=== PATIENT | female | born 1950 | race African-American/Black ===

== ENCOUNTER → 2017-11-12 | Outpatient (CLI) | payer MEDICARE, OTHER | LOC: M.RAD 09:25 | DX: Z12.31 Encounter for screening mammogram for malignant neoplasm of breast (principal) ==

== ENCOUNTER → 2017-11-16 | Outpatient (CLI) | payer MEDICARE, OTHER | LOC: M.RAD 08:51 | DX: M19.011 Primary osteoarthritis, right shoulder (principal) ==

== ENCOUNTER → 2018-06-10 | Outpatient (CLI) | payer MEDICARE, OTHER | LOC: M.ULTRA 12:19 | DX: M25.561 Pain in right knee (principal) ==

== ENCOUNTER → 2018-11-14 | Outpatient (CLI) | payer MEDICARE, OTHER | LOC: M.RAD 10:26 | DX: Z12.31 Encounter for screening mammogram for malignant neoplasm of breast (principal) ==

== ENCOUNTER → 2019-09-01 | Outpatient (CLI) | payer MEDICARE, OTHER | LOC: M.ULTRA 13:38 | DX: R19.09 Other intra-abdominal and pelvic swelling, mass and lump (principal); R10.31 Right lower quadrant pain ==

== ENCOUNTER 2019-10-01 05:12 | Emergency (ER) | payer MEDICARE, OTHER ==
[~2019-10-01] VITALS: Ht 172.7 cm; Wt 86.6 kg
[2019-10-01] MEDS ORDERED: INDOMETHACIN 2525 MG PO (05:51)
[2019-10-01] MEDS ORDERED: PREDNISONE50 MG PO (05:51)
[2019-10-01] MEDS ORDERED: HYDROCODON-ACE1 EAC8 PO (06:20)
[2019-10-01 06:28] VITALS: BP 148/67
== END 2019-10-01 06:28 | disposition home or self-care (01) ==
LOC: M.ERS 05:12
DX: M54.5 Low back pain (principal); M79.645 Pain in left finger(s); M79.644 Pain in right finger(s)

== ENCOUNTER → 2019-10-24 | Outpatient (CLI) | payer MEDICARE, OTHER ==
[~2019-10-24] MED LIST: ADVIL200 M1 PO; AMITRIPTYLINE H10 M3 PO; HYDROCODON-ACE1 EAC8 PO; INDOMETHACIN 2525 MG PO; LOW DOSE ASPIRI81 M1 PO; MOBIC15 MG PO; PREDNISONE50 MG PO; RED YEAST RICE600 MG PO; VITAMIN D32000 UNIT PO
--- NOTE | 2019-11-03 08:24 | PAINCON ---
[address] [address] PAIN MANAGEMENT CONSULTATION Name: MICHAEL MAJOR Room: [facility] KENDRICK Edmondson.#: [id number] Admission: 10/24/19 Attend Phys: Phuc Olivares MD Discharge: Date of : 52 Report #: [id number] THIS REPORT FOR: //name// cc: Katharina Donohue Linda J. DO THIS REPORT FOR: //name// CC: Katharina Sanders The patient was seen on 10/24/[address] Dheeraj Olivares. CHIEF COMPLAINT: Severe back pain with numbness into the right leg and buttocks. HISTORY: The patient is a 69-year-old female who has been referred to the pain clinic for evaluation of back and leg pain. The patient has noted pain and discomfort since 07/2019. She describes her pain as a severe discomfort in the lower portion of her back. She is experiencing numbness in her right leg. She has pain in the buttocks. She has pain in her hip, which feels extremely sore. She is experiencing stiffness as well. Stiffness limits her ability to engage in activities of daily living. She feels that she is having some trouble walking because of this. She has tried hydrocodone in the past. She has found prednisone as well as Indomethacin helpful. She also uses Advil. She describes her discomfort as continuous, steady, constant, burning, aching, pulling, gnawing and tender to touch. She rates her pain as a 10/10. She had an x-ray in the past, which was negative. She has had an ultrasound, which has been negative. She denies any new bowel or bladder problems. ALLERGIES: SULFA. CURRENT MEDICATIONS: Aspirin 81 mg, vitamin D3 2000 units, hydrocodone 7.5/325, ibuprofen 200 mg t.i.d. p.r.n., Indomethacin 25 mg t.i.d., red yeast rice extract 600 mg. PAST MEDICAL HISTORY: Generally good health. PAST SURGICAL HISTORY: None. SOCIAL HISTORY: She is retired. REVIEW OF SYSTEMS: Questionnaire generally good health, fatigue and weakness, glaucoma/cataracts, awakens at night to urinate, joint pain, joint stiffness, weakness of muscles and joints, muscle cramping, back pain, difficulty walking, numbness [place] [address] PAIN MANAGEMENT CONSULTATION Name: MICHAEL MAJOR Room: [facility]#: [id number] Admission: 10/24/19 Attend Phys: Phuc Olivares MD Discharge: Date of : 51 Report #: [id number] PAIN CLINIC ASSESSMENT/PQRS: 1. The patient is not being treated for rheumatoid arthritis or osteoarthritis. 2. Height 5 feet 8 inches, weight 196 pounds, BMI is 29.8. 3. Vital signs: Blood pressure 156/91, heart rate 120, second blood pressure 159/85, respiratory rate 16, saturation 97%, temperature 99.2. 4. Pain score, right hip, 10/10. 5. Fall history: The patient has not fallen in the last 3 months. 6. Blood thinner. The patient is not on a blood thinning medication. 7. Hypertension. The patient is not being treated for hypertension. 8. Opioids greater than 6 weeks. The patient is not on a chronic opioid regimen, receives medication from her primary. 9. Risk assessment tool, low for opioid use. 10. Functional assessment tool 60/70. 11. Recreational drug use. The patient denies use of tobacco. 12. Alcohol. The patient denies frequent use of alcoholic beverages. PHYSICAL EXAMINATION: GENERAL: The patient is a well-developed, well-nourished black female, who appears her stated age. She is alert and oriented x 3. Her affect is appropriate. Speech is fluent. HEENT: Normocephalic, atraumatic. Extraocular eye muscles intact. Sclerae are nonicteric. Mucous membranes are moist. NECK: Without adenopathy or JVD. HEART: Regular rate. ABDOMEN: Nontender. CHEST: Clear to auscultation. EXTREMITIES: Upper extremity muscle strength judged to be 5/5 for the major muscle groups in the upper extremity. Deep tendon reflexes are +1 for the biceps bilaterally. Lower extremity muscle strength judged to be 5/5 for the major muscle groups in the lower extremity. The patient has increased pain in the low back area. Forward bending causes increased pain with pain radiating down in the L5-S1 dermatomal distribution. Deep tendon reflexes are trace at the knees, bilateral. Michael sign is negative. IMPRESSION: Lumbar radiculopathy, L5-S1 dermatomal distribution. RECOMMENDATIONS: We discussed treatment options with the patient. Risks and benefits of an epidural steroid injection were discussed. A model was used to indicate the area of probable pathology. Possible complications of an injection were reviewed. They include but are not limited to infection, worsening of pain, nerve damage, spinal headache, muscle soreness. The patient elects to proceed. PROCEDURE NOTE: The patient was taken to the procedure area. She was then assisted in getting on examination table. Her back was sterilely prepped with a Betadine solution. At the L5-S1 area, 0.25% bupivacaine [place] [address] PAIN MANAGEMENT CONSULTATION Name: MICHAEL MAJOR Room: [facility] BARB JonelEda#: [id number] Admission: 10/24/19 Attend Phys: Phuc Olivares MD Discharge: Date of : 51 Report #: [id number] 17-gauge Tuohy with loss of resistance technique was used to gain access to the epidural space. There was no CSF, heme or paresthesia. A left paracentral approach was undertaken at the L5-S1 area. A total of 80 mg of Depo-Medrol, 40 mg of triamcinolone and 2 mL of 0.25% bupivacaine was injected. The patient tolerated the procedure well. There were no complications. Total of 9 seconds fluoroscopy time was used. We would like to thank you for letting us participate in her care. We hope she continues to improve. <ELECTRONICALLY SIGNED> By: Phuc Olivares MD 11/03/19 0824 1246 2247N. Dheeraj Olivares MD /nt
== END | disposition home or self-care (01) ==
LOC: M.PC 05:15
DX: M54.16 Radiculopathy, lumbar region (principal); G89.29 Other chronic pain; Z79.891 Long term (current) use of opiate analgesic; Z79.82 Long term (current) use of aspirin

== ENCOUNTER → 2019-11-07 | Outpatient (CLI) | payer MEDICARE, OTHER ==
--- NOTE | 2019-11-10 09:06 | PAINCON ---
[address] [address] PAIN MANAGEMENT CONSULTATION Name: MICHAEL MAJOR Room: [facility] KENDRICK RemyRebeccaLio.#: [id number] Admission: 11/07/19 Attend Phys: Phuc Olivares MD Discharge: Date of : 51 Report #: [id number] THIS REPORT FOR: //name// cc: Katharina Donohue Linda J. DO THIS REPORT FOR: //name// CC: Katahrina Sanders DATE OF SERVICE: 11/07/2019 CHIEF COMPLAINT: The pain has improved after the injection. HISTORY: The patient is a 69-year-old female who has been seen in the pain clinic because of right hip and joint pain. The patient has been experiencing pain and discomfort since 07/2019. Describes the pain as severe. It involves her right leg. She was told that there is possibility of a labrum tear. She has been using Advil to help control the pain. There was a burning, aching, pulling, gnawing sensation to it. She underwent an epidural steroid injection in the lumbar area at the last visit. She returns today indicating that her pain has improved. She rates her pain as a 0 today and can rise to a level of 1 with activity. Overall, things have improved. She is concerned about the tear. She would like to see a physician in regards to that disruption. ALLERGIES: SULFA. CURRENT MEDICATIONS: Aspirin 81 mg, vitamin C 2000 units, hydrocodone 7.5 mg/325 p.r.n., Mobic 15 mg 1 p.o. daily, red yeast rice extract 600 mg. PAIN CLINIC ASSESSMENT AND PQRS: 1. The patient is not being treated for rheumatoid arthritis or osteoarthritis, but has some arthritic change complaints in her right hip. 2. Height 5 feet 8, weight 194 pounds, BMI is 29. 3. Vital Signs: Blood pressure is 155/72, heart rate 97, respiratory rate 16, room air saturation 96%, temperature 99.1. 4. Pain intensity 0-1. 5. Fall history: The patient has not fallen since we saw her last. 6. Blood thinner. The patient is not on a blood thinning medication. 7. Hypertension. The patient is not being treated for hypertension. 8. Opioids greater than 6 weeks. The patient is not receiving opioids on a regular basis. 9. Risk assessment tool, low for opioid use. 10. Functional assessment tool 60/70. 11. Recreational drug use: [place] [address] PAIN MANAGEMENT CONSULTATION Name: MICHAEL MAJOR Room: [facility]#: [id number] Admission: 11/07/19 Attend Phys: Phuc Olivares MD Discharge: Date of : 51 Report #: [id number] 12. Alcohol: The patient denies frequent use of alcoholic beverages. PHYSICAL EXAMINATION: GENERAL: The patient is a well-developed, well-nourished black female. Appears her stated age. She is alert and oriented x 3. Her affect is appropriate. Speech is fluent. HEENT: Normocephalic, atraumatic. Extraocular eye muscles intact. Sclerae nonicteric. Mucous membranes are moist. NECK: Without adenopathy or JVD. HEART: Regular rate. ABDOMEN: Nontender. CHEST: Clear to auscultation. EXTREMITIES: Upper extremity muscle strength judged to be 5/5 for the major muscle groups in the upper extremity. Lower extremity muscle strength judged to be 5/5 for the major muscle groups in the lower extremity. The patient has less pain and discomfort. She has noticed resolution of the pain, which was in the L5-S1 dermatomal distribution. Notes some occasional soreness with certain movements, but most of the time it is negative. Straight leg raise is negative. IMPRESSION: Lumbar radiculopathy, status post L5-S1 epidural steroid injection with improvement. RECOMMENDATIONS: We discussed treatment options with the patient. Risks and benefits of epidural steroid injections again were reviewed. The patient has had some improvement in her pain since the last injection. She had a labrum tear. She would like to have a referral for that. We talked to her about doctors at [place]. One of the physicians there specializes in hip joints. We will have her follow up with him and see whether any additional treatment needs to be pursued. We would like to thank you for letting us participate in her care. A script for Mobic 15 mg 1 p.o. daily with 2 refills has been provided. The patient will also try amitriptyline p.r.n. as needed. We would like to thank you for letting us participate in her care. We hope she continues to improve. <ELECTRONICALLY SIGNED> By: Phuc Olivares MD 11/10/19 0906 1052 1247N. Dheeraj Olivares MD /nt
== END ==
LOC: M.PC 04:33
DX: M54.16 Radiculopathy, lumbar region (principal); Z88.8 Allergy status to other drugs, medicaments and biological substances; Z79.82 Long term (current) use of aspirin; Z79.899 Other long term (current) drug therapy

== ENCOUNTER → 2019-11-16 | Outpatient (CLI) | payer MEDICARE, OTHER | LOC: M.RAD 09:34 | DX: Z12.31 Encounter for screening mammogram for malignant neoplasm of breast (principal) ==

== ENCOUNTER → 2019-12-21 | Outpatient (CLI) | payer MEDICARE, OTHER ==
--- NOTE | ~2019-12-21 | PAINCON ---
[address] [address] PAIN MANAGEMENT CONSULTATION Name: MICHAEL MAJOR Room: [facility] KENDRICK RemyLatrice.#: [id number] Admission: 12/21/19 Attend Phys: Phuc Olivares MD Discharge: Date of : 51 Report #: [id number] THIS REPORT FOR: //name// cc: Katharina Donohue Linda J. DO THIS REPORT FOR: //name// CC: Katharina Sanders DATE OF SERVICE: 12/21/2019 CHIEF COMPLAINT: The pain improved after the last injection, but has returned. HISTORY: The patient is a 69-year-old female who has been seen in the pain clinic because of right hip and joint pain. The patient noticed an injury in 07/2019. She noted some onset of severe pain in the right leg area. A labrum tear was noted. She has been using nonsteroidal anti-inflammatory medications. She has undergone physical therapy. She has seen Dr. Smith and was requested to undergo physical therapy, which she has done. She is not sure how much that improve things. Feels that her pain is still problematic. She does like to walk a lot. This still causes pain and discomfort with walking. She does note a burning sensation in her right hip and right groin area. She noticed a significant improvement in her pain after an epidural steroid injection. The left leg is most problematic at this juncture. She would like to undergo another epidural steroid injection. She does feel frustrated because of the continued pain and discomfort. ALLERGIES: SULFA. CURRENT MEDICATIONS: Aspirin 81 mg, vitamin C 2000 units, hydrocodone 7.5 mg/325 mg p.r.n., Mobic 15 mg 1 p.o. daily, red yeast rice extract 600 mg. PAIN CLINIC ASSESSMENT/PQRS: 1. The patient is not being treated for rheumatoid arthritis or osteoarthritis. She does have some arthritic changes in her right hip. 2. Height 5 feet 8 inches, weight 192 pounds, BMI is 29. 3. Vital signs: Blood pressure 137/74, heart rate 100, respiratory rate 16, room air saturation 97%, temperature 99. 4. Pain intensity is 2-3/10 5. Fall history: The patient has not fallen since we saw her last. 6. The patient is not being treated with blood thinner. 7. Hypertension. The patient is not being treated for hypertension. 8. Opioids greater than 6 weeks. The patient is not receiving opioids. 9. Risk assessment tool, [place] [id number] PAIN MANAGEMENT CONSULTATION Name: MICHAEL MAJOR Room: [facility]#: [id number] Admission: 12/21/19 Attend Phys: Phuc Olivares MD Discharge: Date of : 51 Report #: [id number] 10. Functional assessment tool 60/70. 11. Recreational drug use. The patient denies use of alcohol. PHYSICAL EXAMINATION: GENERAL: The patient is a well-developed, well-nourished black female, appears her stated age. She is alert and oriented x 3. Her affect is appropriate. Speech is fluent. HEENT: Normocephalic, atraumatic. Extraocular eye muscles intact. Sclerae nonicteric. Mucous membranes are moist. NECK: Without adenopathy or JVD. HEART: Regular rate. ABDOMEN: Nontender. LUNGS: Clear to auscultation. EXTREMITIES: Upper extremity muscle strength judged to be 5/5 for the major muscle groups in the upper extremity. Lower extremity muscle strength judged to be 5/5 for the major muscle groups. The patient does complain of pain and discomfort down into the L5-S1 dermatomal distribution on the left. Still has some soreness associated with the right side and notes some increased discomfort with certain movements. IMPRESSION: 1. Lumbar radiculopathy with L5-S1, improved with epidural steroid injection. 2. Pain in the right lower hip and groin area with history of labrum tear. RECOMMENDATIONS: We discussed treatment options with the patient. Risks and benefits of an epidural steroid injection were discussed. Possible complications of the procedure, which could include but are not limited to infection, worsening pain, no improvement in pain, nerve damage, bleeding, and the patient elects to proceed. PROCEDURE NOTE: The patient was taken to the procedure area. She was then assisted in getting on the examination table. Her back was sterilely prepped with a Betadine solution. A 0.25% bupivacaine was infiltrated. A 17-gauge Tuohy with loss of resistance technique was used to gain access to the epidural space. There was no CSF, heme or paresthesia. Total of 80 mg Depo-Medrol, 40 mg triamcinolone was injected at the L5-S1 area. The patient tolerated the procedure well. She remained in the Pain Clinic for an appropriate amount of time. We have requested that the patient continue with the Elavil medication. She states that she continues to have some burning pain and discomfort. We explained that the continued use of the Elavil medication may mitigate that the pain and discomfort. She will also continue with nonsteroidal anti-inflammatory medications as tolerated. [address] [place] [address] PAIN MANAGEMENT CONSULTATION Name: MICHAEL MAJOR Room: [facility]#: [id number] Admission: 12/21/19 Attend Phys: Phuc Olivares MD Discharge: Date of : 51 Report #: [id number] We would like to thank you for letting us participate in her care. We hope she continues to improve. By: [id number]. Dheeraj Olivares MD /nt
== END | disposition home or self-care (01) ==
LOC: M.PC 01:39
DX: M54.16 Radiculopathy, lumbar region (principal); M25.551 Pain in right hip; Z98.890 Other specified postprocedural states; Z79.899 Other long term (current) drug therapy; Z79.82 Long term (current) use of aspirin; Z88.2 Allergy status to sulfonamides

== ENCOUNTER 2020-02-05 06:30 | Inpatient (IN) | payer MEDICARE, OTHER ==
[2020-01-30 10:34] LABS: ABSOLUTE BASOPHILS 0.1 thou/uL (0.0-0.2); ABSOLUTE LYMPHOCYTES 2.7 thou/uL (0.8-5.3); ABSOLUTE MONOCYTES 0.7 thou/uL (0.0-1.2); ABSOLUTE NEUTROPHILS 5.1 thou/uL (1.6-8.1); BASOPHILS 0.7 %; EOSINOPHILS 0.5 %; HEMATOCRIT 38.1 % (37.0-47.0); HEMOGLOBIN 12.8 gm/dL (12.0-15.0); LYMPHOCYTES 31.1 %; MCHC 33.7 g/dL (28.0-37.0); MONOCYTES 8.5 %; MPV 7.7 fl. (7.2-11.1); NUCLEATED RBCS 0 /100WBC; PLATELET COUNT* 300 thou/uL (150-400); POLYS 59.2 %; RBC 4.43 mil/uL (4.20-5.00); RDW-CV 13.6 % (10.5-14.5); WBC 8.6 thou/uL (4.0-11.0)
[2020-01-30 10:45] LABS: PROTIME 10.2 Seconds (9.20-11.50)
[2020-01-30 10:54] LABS: ALBUMIN 3.8 g/dL (3.4-5.0); CALCIUM 9.1 mg/dL (8.5-10.1); CREATININE 0.9 mg/dL (0.6-1.3); POTASSIUM 3.8 mmol/L (3.5-5.1); TOTAL BILIRUBIN 0.5 mg/dL (<0.1-1.0); TOTAL PROTEIN 7.2 g/dL (6.4-8.2)
[2020-01-30 11:38] LABS: ESR (SEDRATE) 1 mm/hr (0-30)
--- NOTE | 2020-01-30 15:29 | EKG ---
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
[~2020-02-05] VITALS: Ht 172.7 cm; Wt 86.2 kg
--- NOTE | ~2020-02-05 | OP ---
[address] [address] OPERATIVE REPORT Name: MICHAEL MAJOR Room: [address] M.R.#: [id number] Admission: 02/05/20 Attend Phys: Nik Lucero DO Discharge: Date of : 51 Report #: [id number] THIS REPORT FOR: //name// cc: Katharina Donohue Linda J. DO ~ THIS REPORT FOR: //name// CC: Nik Donohue DICTATED BY: Joe Parra DO DATE OF SERVICE: 02/05/2020 PREOPERATIVE DIAGNOSIS: Right hip primary osteoarthritis. POSTOPERATIVE DIAGNOSIS: Right hip primary osteoarthritis. OPERATION PERFORMED: Right total hip arthroplasty. SURGEON: Nik Lucero DO [employer] OPERATOR HELPER: Joe Parra DO and Dominic Muniz DO ESTIMATED BLOOD LOSS: 200 mL. ANESTHESIA: General plus anesthetic cocktail injected into the operative field. ANTIBIOTICS: Two g IV Ancef given within 1 hour of skin incision. DRAINS: None. SPECIMENS: None. COMPLICATIONS: None. CONDITION: Stable. DISPOSITION: PACU to orthopedic floor. IMPLANTS: Biomet total hip arthroplasty system was used with following components: 1. A size 52 mm G7 acetabular shell. 2. A size 36 mm high wall liner. 3. A size 6 x 132 mm standard offset Taperloc femoral stem. 4. A size 36 mm ceramic head with a standard neck length also two 25 mm length, [place] [address] [address] OPERATIVE REPORT Name: MICHAEL MAJOR Room: [address] M.R.#: [id number] Admission: 02/05/20 Attend Phys: Nki Lucero DO Discharge: Date of : 51 Report #: [id number] 6.5 mm diameter bone screws. INDICATIONS FOR PROCEDURE: This patient is a pleasant 69-year-old female who had followed in orthopedic clinic regarding her right hip pain. Radiographs were consistent with significant degenerative changes. She had attempted conservative treatment over the last several years, including activity modifications, anti-inflammatory medications and physical therapy. Despite trying these things, she continued to have pain, which was interfering with her overall quality of life; therefore, we did discuss with her in the office a right total hip arthroplasty. Risks, indications, and treatment alternatives were reviewed with her and her informed consent was obtained. OPERATION IN DETAIL: The patient was taken to the operating suite and placed on operative table in supine position where general anesthesia was then induced. The patient was then well secured to the [place] table and the feet were placed within the boots on the ____ of the table. The right hip region was then sterilely prepped and draped free in the usual fashion. Timeout was then performed to confirm that safety checklist has been completed. All the present OR personnel were in agreement. A longitudinal incision was marked out over the anterior aspect of the hip approximately 2 cm lateral and distal to the anterior superior iliac spine. Sharp dissection was then carried down through the skin and subcutaneous tissues down to the level of the tensor fascia, which was then incised in line with the incision. The interval between the sartorius and the tensor fascia tammy was developed bluntly. Retractors were then placed. The circumflex vessels were identified and treated with the Aquamantys before being cauterized. Retractors were then placed around the femoral neck and over the acetabular rim. The capsule was then pretreated with Aquamantys and then an anterior capsulectomy was performed. The neck cut was made just proximal to the lesser trochanter to the saddle region with a reciprocating saw. A napkin type ring cut was then made and this was removed with a bone tenaculum. The femoral head was also removed with a bone tenaculum and measured on the back table. We then used electrocautery to remove the remnant of the labrum and the pulvinar tissue. The acetabulum was then sequentially reamed up to a size 51. The final reaming was performed under C-arm fluoroscopy to confirm the correct position. The acetabulum was then irrigated. There was good bleeding bone exposed. The final acetabular component was then impacted into position utilizing the guide as well as direct visualization and C-arm fluoroscopy to confirm that the shell was impacted into the appropriate position. Two holes were then drilled in the posterior superior quadrant and two 25 mm bone screws were placed. The manhole was then covered. Another C-arm image was taken to confirm that the cup was in appropriate positioning. The acetabular liner was then impacted into position with the high wall face superiorly. This was confirmed to be locked into position. The retractors were then removed and attention was taken to the proximal femur. Releases were performed around the proximal femur and the leg was then extended and externally rotated. Retractors were then placed. Dissection was continued in the saddle region, exposing the saddle region. The [address] [address] OPERATIVE REPORT Name: MICHAEL MAJOR Room: [address] .R.#: [id number] Admission: 02/05/20 Attend Phys: Nik Lucero DO Discharge: Date of : 51 Report #: [id number] access was gained to the intramedullary canal by using a box osteotome followed by the rat-tail rasp. The femur was then sequentially broached up to a size 6, which gave excellent fit and fill within the proximal femur and an excellent press fit in the medial and lateral direction. Multiple trials were then performed. Ultimately, a standard neck length was determined to be the appropriate length with the standard offset. The hip was taken through motion and found to be stable. Leg lengths were also measured and found to be appropriate. The hip was then once again dislocated. The trial components were removed. The wound was copiously irrigated. The final femoral stem was then impacted into position at the appropriate level. Once again, a trial reduction was performed and the standard neck length was selected as our final component. The final ceramic head was impacted onto the Luevano taper and the final reduction was performed. Leg lengths were measured and found to be appropriate. The hip was taken through range of motion and found to be stable. The anesthetic cocktail was then injected. A layered closure was then performed beginning with a #1 Quill throughout the tensor fascia. A subcutaneous layer was reapproximated with a 2-0 Vicryl suture in a buried fashion followed by a running 3-0 Stratafix suture on the skin. The skin glue was applied to the incision and allowed to dry, followed by application with Mepilex dressing followed by thigh high BOB hose. Sponge and needle counts reported to be correct. The patient was awaked from general anesthetic and transferred to the PACU in stable condition with no apparent complications. ATTESTATION: Dr. Nik Lucero was present for all critical aspects of surgery. By: Abby: 02/05/20 1610 1702Daviabby Lucero DO /nt
[2020-02-05 11:00] VITALS: BP 154/72
[2020-02-05 17:58] VITALS: BP 153/69
--- NOTE | 2020-02-05 18:11 | NUR ---
PT ADMITTED TO UNIT POST OP HIP. PT ALERT AND ORIENTED AND DROWSY. PT RESTING IN BED. FOOD ORDERED FOR PT. FALL RISK PRECAUTIONS IN PLACE. PT ORIENTED TO ROOM. CALL LIGHT IN REACH. WILL CONTINUE TO MONITOR.
--- NOTE | 2020-02-05 18:30 | NUR ---
PT REMAINED ALERT AND ORIENTED. PT IS DROWSY FROM ANESTHESIA. PT DENIES PAIN AT THIS TIME AND WANTS TO REST. PT HAS NOT VOIDED SINCE SURGERY. PT RESTING IN BED AND ORIENTED TO ROOM WITH CALL LIGHT IN REACH. FALL RISK PRECAUTIONS IN PLACE. HOURLY ROUNDING COMPLETED. WILL CONTINUE TO MONITOR.
[2020-02-05 21:22] VITALS: BP 155/73
[2020-02-05 23:57] VITALS: BP 138/64
[2020-02-06 05:38] VITALS: BP 126/47
[2020-02-06 06:09] LABS: HEMATOCRIT 33.3 % (37.0-47.0); HEMOGLOBIN 11.2 gm/dL (12.0-15.0)
--- NOTE | 2020-02-06 06:22 | NUR ---
PATIENT SLEPT WELL DURING THIS SHIFT. DSG ON RT HIP C/D/I. PT DENIES PAIN. PT USES CALL LIGHT APPROPRIATELY FOR BEDPAN. PT VOIDS YELLOW URINE. PT ABLE TO REPOSITION HERSELF IN BED AND SIT UP. PT'S VITALS WNL UNTIL 0400 AND TEMP WAS AT 101.1; TYLENOL GIVEN EARLY AND PT ENCOURAGED TO USE HER INCENTIVE SPIROMETER. TEMP WILL BE RECHECKED AND APPROPRIATE ACTIONS WILL BE TAKEN. FREQUENTLY USED ITEMS AND CALL LIGHT WITHIN REACH. SIDERAILS UPX2 AND BED ALARM ON. WILL CONTINUE TO MONITOR.
--- NOTE | 2020-02-06 06:47 | NUR ---
PT'S TEMPERATURE AT THIS TIME IS 100.4; RESIDENT NOTIFIED AND SAID HE IS IN THE BUILDING AND WILL CHECK ON HER.
[2020-02-06 09:00] VITALS: BP 113/55
[2020-02-06 12:00] VITALS: BP 124/45
[2020-02-06 16:00] VITALS: BP 120/50
--- NOTE | 2020-02-06 17:02 | NUR ---
SW called pt to complete initial assessment, introduce self, and SW role. Pt lives at home with and has been independent with all mobility and ADLs prior to hip replacement. Pt did not have any DME; pt may need a RW arranged at dc. Pt had hx with an OP therapy but was not pleased with them so her preference now is [facility] OP clinic. SW to continue to follow to assist with safe dc planning.
--- NOTE | 2020-02-06 20:18 | NUR ---
I ASSUMED CARE OF THE PATIENT AT 0700. SHE IS ALERT AND ORIENTED X4 AND IS UP WITH ASSIST OF 1. BED IS IN THE LOW LOCKED POSITION AND CALL LIGHT IS IN REACH. HOURLY ROUNDING IS COMPLETED AND PATIENT NEEDS ARE MET. PAIN IS MANAGED WITH PRN MEDS. BED ALARM IS ON. MEPLEX IS C/D/I. PATIENT IS AFEBRILE ENTIRE SHIFT. SHE WAS USING THE BEDPAN IN THE AM, AND WAS USING THE COMMODE BY THE AFTERNOON. SHE HOPES TO BE READY TO DISCHARGE TOMORROW. WILL CONTINUE TO MONITOR.
[2020-02-07] VITALS: BP 124/45
--- NOTE | 2020-02-07 02:40 | NUR ---
AT 0115 PATIENT CALLED FOR ASSIST TO COMMODE. UP TO [facility] WITH ASSIST OF ONE. ONCE PATIENT SAT DOWN SHE PASSED OUT. AROUSED WITHIN SECONDS AND VOIDIED THEN ASSISTED BACK TO BED. PATIENT HAS STATED SHE FELT LIKE THE PAIN CAUSED BY STANDING WAS THE REASON. BP ONCE BACK TO BED 144/58 WTH HR 108 BPM, RESP 16 AND TEMP 99.1. O2 SAT 92-94% ON ROOM AIR. BLOOD SUGAR 151. PATIENT WAS DIAPHORETIC WITH FAINTING. EKG COMPLETED WITH READING SINUS TACH 103 BPM RATE. O2 APPLID FOR OVERNIGHT AT 2L/MIN. MESSAGE SENT TO PHYSICIAN TO REPORT ALL OF ABOVE. MESSAGE RECEIVED AT 0232 WITH PHYSICIAN STATING HE WILL FOLLOW-UP. CONTINUE TO MONITOR.
[2020-02-07 04:00] VITALS: BP 134/59
--- NOTE | 2020-02-07 04:54 | NUR ---
PATIENT HAS REMAINED ALERT AND ORIENTED X 4 THROUGHOUT THE SHIFT WITH EXCEPTION OF WHEN SHE FAINTED. SEE EARLIER NOTE. HAS NOT, HOWEVER, GOTTEN OUT OF BED SINCE THEN. DRESSING RIGHT HIP CLEAN AND DRY. BOB HOSE AND FOOT PUMPS BILAT LE IN PLACE. ONLY PAIN MEDICATION IS SCHEDULED TYLENOL PER PATIENT REQUEST. THIS IS DOING VERY WELL WHILE RESTING. VITAL SIGNS CHARTED. NOTED TEMPERATURE ELEVATION AND TACHYCARDIA. PRIOR TO FAINTING PATIENT TRANSFER WITH GAIT BELT, WALKER AND MIN/CGA. CONTINUE TO MONITOR.
[2020-02-07 08:00] VITALS: BP 115/57
--- NOTE | 2020-02-07 09:31 | EKG ---
[place] [address] ELECTROCARDIOGRAM REPORT Name: MICHAEL MAJOR Room: [address] ADM IN M.R.#: [id number] Admission: 02/05/20 Attend Phys: Nik Lucero DO Discharge: Date of : 52 Date of Service: 02/07/20 0144 Report #: [id number] THIS REPORT FOR: //name// [facility] Test Date: 2020-02-07 Test Time: 01:44:49 Pat Name: MICHAEL MAJOR Department: Room: [address] Gender: F Pearl Diver: YOLA : 1950 Requested By: Bobbi Romo Order Number: [id number] Heidy MD: Nik Cline Measurements Intervals [place] Rate: 103 P: 61 DE: 151 QRS: 31 QRSD: 81 T: 29 QT: 340 QTc: 445 Interpretive Statements Sinus tachycardia Probable left atrial enlargement Compared to ECG 01/30/2020 08:51:48 Sinus rhythm no longer present Electronically Signed On 02-07-2020 9:30:01 CDT by Nik Cline [email or web address] <ELECTRONICALLY SIGNED> By: Nik Cline MD, [facility] 02/07/20 0930 0144 0144 Nik Cline MD, [facility] /EPI
--- NOTE | 2020-02-07 13:15 | NUR ---
Per , Pt had a syncopal episode last evening. May be medically stable to dc tomorrow.
[2020-02-07 13:39] LABS: ABSOLUTE BASOPHILS 0.1 thou/uL (0.0-0.2); ABSOLUTE LYMPHOCYTES 2.5 thou/uL (0.8-5.3); ABSOLUTE MONOCYTES 1.9 thou/uL (0.0-1.2); ABSOLUTE NEUTROPHILS 11.5 thou/uL (1.6-8.1); BASOPHILS 0.5 %; HEMATOCRIT 34.4 % (37.0-47.0); HEMOGLOBIN 11.4 gm/dL (12.0-15.0); LYMPHOCYTES 15.4 %; MCH 28.6 pg (26.0-34.0); MCHC 33.1 g/dL (28.0-37.0); MCV 86.2 fL (80.0-100.0); MONOCYTES 11.9 %; MPV 8.3 fl. (7.2-11.1); NUCLEATED RBCS 0 /100WBC; PLATELET COUNT* 210 thou/uL (150-400); POLYS 72.2 %; RDW-CV 13.7 % (10.5-14.5); WBC 15.9 thou/uL (4.0-11.0)
[2020-02-07 13:50] LABS: URINE BILIRUBIN NEGATIVE (Negative); URINE BLOOD NEGATIVE (Negative); URINE CLARITY CLEAR; URINE COLOR YELLOW; URINE GLUCOSE-RANDOM NEGATIVE (Negative); URINE KETONES NEGATIVE (Negative); URINE LEUKOCYTES-REFLEX NEGATIVE (Negative); URINE NITRITE-REFLEX NEGATIVE (Negative); URINE PROTEIN NEGATIVE (Negative); URINE SPECIFIC GRAVITY <= 1.005 (1.005-1.030); URINE UROBILINOGEN 0.2 E.U./dl (0.2-1.0)
[2020-02-07 14:03] LABS: CALCIUM 8.2 mg/dL (8.5-10.1); CREATININE 0.9 mg/dL (0.6-1.3); POTASSIUM 3.9 mmol/L (3.5-5.1)
[2020-02-07 14:08] LABS: ALBUMIN 2.7 g/dL (3.4-5.0); TOTAL BILIRUBIN 0.8 mg/dL (<0.1-1.0); TOTAL PROTEIN 5.8 g/dL (6.4-8.2)
--- NOTE | 2020-02-07 17:20 | NUR ---
PATIENT RESTING UP IN CHAIR. PATIENT IS UP WITH MINIMAL ASSIST WITH GAIT BELT AND WALKER. PATIENT HAS HAD NO EPISODE OF LIGHT HEADEDNESS OR FAINTING TODAY. PATIENT PAIN WELL CONTROLLED WITH OXYCODONE. PATIENT HAS GOOD APPETITE. PATIENT DENIES ANY NEEDS AT THIS TIME. CALL LIGHT WITHIN REACH.
[2020-02-07 20:30] VITALS: BP 132/61
[2020-02-07 22:00] LABS: ABSOLUTE BASOPHILS 0.1 thou/uL (0.0-0.2); ABSOLUTE LYMPHOCYTES 2.3 thou/uL (0.8-5.3); ABSOLUTE MONOCYTES 1.9 thou/uL (0.0-1.2); ABSOLUTE NEUTROPHILS 11.8 thou/uL (1.6-8.1); BASOPHILS 0.6 %; EOSINOPHILS 0.1 %; HEMATOCRIT 31.2 % (37.0-47.0); HEMOGLOBIN 10.5 gm/dL (12.0-15.0); LYMPHOCYTES 14.3 %; MCH 28.9 pg (26.0-34.0); MCHC 33.7 g/dL (28.0-37.0); MCV 85.9 fL (80.0-100.0); MONOCYTES 11.9 %; MPV 8.5 fl. (7.2-11.1); NUCLEATED RBCS 0 /100WBC; PLATELET COUNT* 217 thou/uL (150-400); POLYS 73.1 %; RBC 3.63 mil/uL (4.20-5.00); RDW-CV 13.3 % (10.5-14.5); WBC 16.2 thou/uL (4.0-11.0)
[2020-02-07 22:07] LABS: CALCIUM 8.1 mg/dL (8.5-10.1); CREATININE 0.9 mg/dL (0.6-1.3); POTASSIUM 3.7 mmol/L (3.5-5.1)
[2020-02-07 22:09] LABS: APTT 28.9 Seconds (25.0-31.3); INR 1.2; PROTIME 12.5 Seconds (9.20-11.50)
[2020-02-07 22:11] LABS: ALBUMIN 2.5 g/dL (3.4-5.0); MAGNESIUM 1.6 mg/dL (1.8-2.4); PHOSPHORUS* 1.9 mg/dL (2.5-4.9); TOTAL PROTEIN 6.1 g/dL (6.4-8.2)
[2020-02-08] VITALS: BP 127/57
--- NOTE | 2020-02-08 04:39 | NUR ---
PATIENT HAS SLEPT WELL THROUGHOUT MOST OF THE NIGHT. PATIENT HAD ELEVATED TEMPERATURE OF 102.8 AND PULSE HAS BEEN TACHY. NOTIFIED AND NEW ORDERS GIVEN. PATIENT HAS NOT HAD ANY C/O OF SYNCOPY DURING THE SHIFT, BUT DID STATE "I JUST DON'T FEEL REALLY GOOD". PATIENT URINATING ADEQUATELY. DRESSING TO RIGHT HIP IS C/D/I. IV IN RIGHT HAND-NS @ 100ML/HR. IV IN RIGHT AC-SL. IV ABT GIVEN ORDERED WITH NO ADVERSE SIDE EFFECTS. PATIENT INSTRUCTED TO USE CALL LIGHT WHEN NEEDING ASSISTANCE. HOURLY ROUNDS MADE. WILL CONTINUE WITH PLAN OF CARE AND NURSING TO MONITOR.
[2020-02-08 07:35] VITALS: BP 115/65
[2020-02-08 08:13] LABS: ABSOLUTE LYMPHOCYTES 1.9 thou/uL (0.8-5.3); ABSOLUTE MONOCYTES 1.5 thou/uL (0.0-1.2); ABSOLUTE NEUTROPHILS 11.6 thou/uL (1.6-8.1); BASOPHILS 0.3 %; HEMATOCRIT 30.5 % (37.0-47.0); HEMOGLOBIN 10.3 gm/dL (12.0-15.0); LYMPHOCYTES 12.6 %; MCH 28.7 pg (26.0-34.0); MCHC 33.8 g/dL (28.0-37.0); MPV 8.6 fl. (7.2-11.1); NUCLEATED RBCS 0 /100WBC; PLATELET COUNT* 227 thou/uL (150-400); POLYS 77.1 %; RBC 3.59 mil/uL (4.20-5.00); RDW-CV 13.3 % (10.5-14.5)
[2020-02-08 09:28] LABS: CALCIUM 8.2 mg/dL (8.5-10.1); CREATININE 0.8 mg/dL (0.6-1.3); POTASSIUM 3.7 mmol/L (3.5-5.1)
--- NOTE | 2020-02-08 16:16 | NUR ---
SW was informed of pt with fevers and ID consulted so pt was not ready to dc today. Pt in need of RW at dc and preference for HH services to follow at dc. SW to continue to follow to arrange for RW and HH with pt preference upon dc day.
[2020-02-08 17:20] VITALS: BP 138/64
--- NOTE | 2020-02-08 17:49 | NUR ---
PATIENT RESTING IN BED. PATIENT UP TO CHAIR FOR MEALS. PATIENT WORKED WITH THERAPY X 2. PATIENT HAD EPISODE OF LIGHTHEADEDNESS THIS AM WITH DECREASED BLOOD PRESSURE. NO FURTHER EPISODES DURING THE DAY. FEVER UP TO 99.0 THIS EVENING. PATIENT HAD TRAMADOL THIS AM AND HAS NOT REQUIRED ANY FURTHER MEDICATION FOR PAIN. ICE PACKS TO HIP PROVIDED. PATIENT DENIES ANY NEEDS AT THIS TIME. CALL LIGHT WITHIN REACH.
[2020-02-08 19:20] VITALS: BP 140/63
--- NOTE | 2020-02-09 06:25 | NUR ---
PT ALERT AND ORIENTED. PT FEVER AT NIGHT. THIS AM @ 0500 TEMP IS AT 98.9. FALL PRECAUTION IN PLACE. PT UP TO BSC THIS SHIFT. NO COMPLAINTS OF DIZZINESS. CALL LIGHT WITHIN REACH. HOURLY ROUNDINGS MADE. WILL CONTINUE TO MONITOR.
[2020-02-09 07:30] VITALS: BP 123/54
--- NOTE | 2020-02-09 07:36 | CON ---
[address] [address] CONSULTATION Name: MICHAEL MAJOR Room: [address] ADM IN M.R.#: [id number] Admission: 02/05/20 Attend Phys: Abby Wilson Discharge: Date of : 52 Report #: [id number] THIS REPORT FOR: //name// cc: Katharina Donohue Linda J. DO ~ THIS REPORT FOR: //name// CC: Nik Guerrero DATE OF SERVICE: 02/08/2020 INFECTIOUS DISEASE CONSULTATION ATTENDING PHYSICIAN: Nik Hearn DO REASON FOR EVALUATION: Postoperative fever. HISTORY OF PRESENT ILLNESS: Chart reviewed, the patient examined. This is a 69-year-old with history of osteoarthritis, who underwent elective right total hip arthroplasty on 02/05/2020. The course has been notable for some fevers, primarily in the p.m. She denies significant localizing signs or symptoms. She does have some degree of pain associated with the operative site, although that has lessened. Has experienced a couple episodes, were described sort of a near syncopal, but she is not complaining of any pulmonary or gastrointestinal-related complaints at this point. Evaluation urinalysis was unremarkable as was chest x-ray and CT of the chest. Liver function tests preoperatively were normal or slightly elevated in although less than 100. She had been given perioperative antimicrobial treatment with cefazolin and then a single dose of ceftriaxone yesterday. ALLERGIES: TO SULFA. CURRENT MEDICATIONS: Include cholecalciferol, aspirin, apixaban, amitriptyline seemingly given at night, p.r.n. analgesics and antiemetics. PAST MEDICAL HISTORY: Osteoarthritis. SOCIAL HISTORY: Nonsmoker. No ethanol. No illicit drug use. FAMILY HISTORY: Noncontributory. REVIEW OF SYSTEMS: Otherwise, unremarkable 10-point review of systems. PHYSICAL EXAMINATION: [place] [address] CONSULTATION Name: MICHAEL MAJOR Room: [address] IN [facility].#: [id number] Admission: 02/05/20 Attend Phys: Abby Wilson Discharge: Date of : 52 Report #: [id number] GENERAL: She is alert, cooperative, appropriate. She is not overtly distressed. She is lucid, pleasant, cooperative. VITAL SIGNS: Temperature 98.4, pulse 107, respirations 18, blood pressure 115/65. SKIN: Warm, dry, no rashes. HEENT: Normocephalic. Extraocular muscles intact. NECK: Supple. LUNGS: Generally clear to auscultation. HEART: Regular. I do not appreciate murmur and is borderline tachycardic. ABDOMEN: Soft, nontender, nondistended. EXTREMITIES: No cyanosis. Right hip: There is a fair degree of induration at the site and it is not particularly tender to palpation. There is mild inflammation noted. GENITOURINARY AND RECTAL: Deferred. LABORATORY DATA: Electrolytes: Sodium 139, potassium 3.7, chloride 104, bicarb is 25, anion gap of 10, BUN and creatinine 12 and 0.8. Glucose of 124. Blood cultures are sterile thus far. CBC: White count of 15.0, H and H 10.3 and 30.5, platelets of 227, bit of a monocytosis. Prealbumin of 11.7. Chest x-ray was unremarkable. Lactic acid serially is 1.2 and 1.6. Recent liver functions showed an elevated AST of 82, ALT of 83. Total bilirubin of 1.0. Urinalysis unremarkable. ASSESSMENT: Postoperative fevers and the patient with right total hip arthroplasty. This is an elective procedure. At this point, I do not see any clear evidence of a localized focus of pyogenic infection. Liver function tests may be a potential cause of fever, having been elevated, could be adverse drug effects, such as a drug-induced hepatitis as we are able to check an ultrasound of the biliary tract to exclude an occult process and we will hold the amitriptyline seemingly that cyclical nature of it spikes in the evening. <ELECTRONICALLY SIGNED> By: Antolin Ziegler MD 02/09/20 0736 1456 [id number] Ziegler MD /nt
[2020-02-09 08:18] VITALS: BP 123/54
[2020-02-09 16:00] VITALS: BP 151/59
--- NOTE | 2020-02-09 16:29 | NUR ---
PATIENT UP TO CHAIR THIS AM INTO AFTERNOON. NO COMPLAINTS OF PAIN. UP WITH SBA AND WALKER. PATIENT VOIDED LARGE AMOUT OF URINE VIA BSC. BOB HOSE IN PLACE TO KIRK LE'S, SKIN CHECKED. DRESSING TO RIGHT HIP D/I, ICE IN PLACE NEEDED. ABD US THIS AM, NEGATIVE. POSSIBLE DISCHARGE TOMORROW.
--- NOTE | 2020-02-09 17:16 | NUR ---
MARQUISE called and spoke with pt to discuss possible dc planning for the weekend if pt is medically ready to dc soon. Pt in need of RW at dc; MARQUISE faxed order to the unit to have on the pt chart and PT or Seasonal Retail Merchandiser to issue if pt dc over the weekend. MARQUISE sent initial referral of H & P and face sheet to pt choice of HH services [facility] and final orders/med list would need to be faxed upon dc.
[2020-02-10] VITALS: BP 119/45
[2020-02-10 04:31] LABS: HEMATOCRIT 26.3 % (37.0-47.0); HEMOGLOBIN 8.7 gm/dL (12.0-15.0); MCH 28.5 pg (26.0-34.0); MCV 86.3 fL (80.0-100.0); MPV 8.5 fl. (7.2-11.1); RBC 3.04 mil/uL (4.20-5.00); RDW-CV 13.6 % (10.5-14.5); WBC 8.2 thou/uL (4.0-11.0)
[2020-02-10 04:48] LABS: CALCIUM 7.5 mg/dL (8.5-10.1); CREATININE 0.9 mg/dL (0.6-1.3); POTASSIUM 3.9 mmol/L (3.5-5.1); TOTAL BILIRUBIN 0.8 mg/dL (<0.1-1.0); TOTAL PROTEIN 4.9 g/dL (6.4-8.2)
--- NOTE | 2020-02-10 05:14 | NUR ---
PATIENT SLEPT WELL DURING THIS SHIFT. PT WITH FLUIDS/ANTIBIOTICS INFUSING PER DR ORDER. PT DENIES PAIN/NAUSEA. PT USES CALL LIGHT APPROPRIATELY FOR ASSISTANCE TO BSC. PT WITH THIGH HIGH BOB HOSE IN PLACE. PT HAS BEEN AFEBRILE DURING THIS SHIFT. PT HAS REDNESS, WARMTH AND FIRMNESS ON RT HIP NEAR INCISION. BOTTOM OF REDNESS HAS BEEN CIRCLED IN RED INK FOR MEASUREMENT. FREQUENTLY USED ITEMS AND CALL LIGHT WITHIN REACH. SIDERAILS UPX2 AND BED ALARM ON. WILL CONTINUE TO MONITOR.
[2020-02-10 08:05] VITALS: BP 131/74
[2020-02-10 11:06] LABS: URINE BILIRUBIN NEGATIVE (Negative); URINE BLOOD NEGATIVE (Negative); URINE CLARITY CLEAR; URINE COLOR YELLOW; URINE GLUCOSE-RANDOM NEGATIVE (Negative); URINE KETONES NEGATIVE (Negative); URINE LEUKOCYTES NEGATIVE (Negative); URINE NITRITE NEGATIVE (Negative); URINE PROTEIN NEGATIVE (Negative); URINE UROBILINOGEN 0.2 E.U./dl (0.2-1.0)
[2020-02-10] MEDS ORDERED: ELIQUIS5 MG PO (11:46)
[2020-02-10] MEDS ORDERED: OXYCODONE HCL 55 MG PO (11:47)
[2020-02-10] MEDS ORDERED: TRAMADOL 50 MG50 MG PO (11:48)
[2020-02-10] MEDS ORDERED: ELIQUIS2.5 MG PO (11:48)
[2020-02-10 12:28] VITALS: BP 123/54
--- NOTE | 2020-02-10 14:35 | NUR ---
Patient discharged to home via wheelchair with all belongings. I did go over all discharge instructions including incision care, new medications to take and medications to continue. She has a previously scheduled appointment to follow up with Ortho on February 19, 2020. All questions answered and walker provided for patient to take home. here to pick patient up at the front entrance. No s/s of distress or discomfort noted at time of discharge. Patient is verbalized understanding of all discharge instructions icluding reasons to call the surgeon and problems that would warrent a call to [phone].
== END 2020-02-10 14:20 | disposition home health service (06) | DRG 470 ==
LOC: M.PRE 06:30 → M.3W 10:18 → M.TBA 10:18 → M.PRE 11:19 → M.3W 17:46
PROVIDERS: Family Medicine; Internal Medicine; Orthopaedic Surgery; ADMIT Internal Medicine
PROC: 0SR903A Replacement of Right Hip Joint with Ceramic Synthetic Substitute, Uncemented, Open Approach (ICD-10-PCS; principal; 2020-02-05)
DX: M16.11 Unilateral primary osteoarthritis, right hip (principal); E44.0 Moderate protein-calorie malnutrition; D62 Acute posthemorrhagic anemia; R09.02 Hypoxemia; K75.9 Inflammatory liver disease, unspecified; T50.905A Adverse effect of unspecified drugs, medicaments and biological substances, initial encounter; Y92.89 Other specified places as the place of occurrence of the external cause; Z88.2 Allergy status to sulfonamides; Z79.82 Long term (current) use of aspirin; Z79.899 Other long term (current) drug therapy; Z68.28 Body mass index [BMI] 28.0-28.9, adult

== ENCOUNTER → 2020-04-12 | Outpatient (CLI) | payer MEDICARE, OTHER ==
[~2020-04-12] MED LIST changes: +ELIQUIS2.5 MG PO; +ELIQUIS5 MG PO; +OXYCODONE HCL 55 MG PO; +TRAMADOL 50 MG50 MG PO
== END ==
LOC: M.ULTRA 08:44
PROVIDERS: ATTEND Family Medicine
DX: E07.9 Disorder of thyroid, unspecified (principal); R94.6 Abnormal results of thyroid function studies

== ENCOUNTER → 2020-04-19 | Outpatient (CLI) | payer MEDICARE, OTHER ==
--- NOTE | 2020-04-22 17:06 | PATH ---
[address] [address] PATHOLOGY RPT PROCEDURE Name: MICHAEL MAJOR Room: [facility] KENDRICK Edmondson.#: [id number] Admission: 04/19/20 Date of : 52 Discharge: Report #: [id number] Path Case #: [id number] Note [facility] Accession Number: [id number] TESTS RESULT FLAG UNITS REF RANGE LAB Clinician Provided Cytology Information No. of containers..01 Other (Miscellaneous) Source: RIGHT THYROID NODULE DIAGNOSIS: 02 RIGHT THYROID NODULE, IMAGE-GUIDED FNA: NEGATIVE FOR MALIGNANT CELLS. BETHESDA CATEGORY II. SPECIMEN CONSISTS OF BENIGN FOLLICULAR CELLS, HEMOSIDERIN-LADEN MACROPHAGES, COLLOID, AND BLOOD. 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 THIS INTERPRETATION INCLUDES EVALUATION OF A CELL BLOCK. 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 Signed out by: Reyes Perez MD, Pathologist NPI- [id number] Performed by: Justin Glass, Millinery Designer ([facility]) Gross description: 01 30ML, RED, 4 FX 4 AD /LCS 04/19/2020 1926 Local FLAG LEGEND: L-Low Normal,H-High Normal,LL-Alert Low,HH-Alert High <-Panic Low,>-Panic High,A-Abnormal,AA-Critical Abnormal Performed at: [address] [place] [address] Shawn Iqbal MD, [address] [place] [phone] Hammad Perez MD, Specimen Comment: A courtesy copy of this report has been sent to [phone] Specimen Comment: [phone] Specimen Comment: Report sent to / DR ARAGON Specimen Comment: A duplicate report has been generated due to demographic updates. Performed at: [address], [place], [place] [id number] [address] [address] PATHOLOGY RPT PROCEDURE Name: MICHAEL MAJOR Room: ALEN Castaneda#: [id number] Admission: 04/19/20 Date of : 52 Discharge: Report #: [id number] Path Case #: [id number] [facility] Phone: [phone]
--- NOTE | 2020-04-22 17:06 | PATH ---
[address] [address] PATHOLOGY RPT PROCEDURE Name: MICHAEL MAJOR Room: [facility] Debo.#: [id number] Admission: 04/19/20 Date of : 52 Discharge: Report #: [id number] Path Case #: [id number] Note [facility] Accession Number: [id number] TESTS RESULT FLAG UNITS REF RANGE LAB Clinician Provided Cytology Information No. of containers..01 Other (Miscellaneous) Source: ISTHMUS NODULE DIAGNOSIS: ISTHMUS NODULE, IMAGE-GUIDED FNA: NEGATIVE FOR MALIGNANT CELLS. BETHESDA CATEGORY II. SPECIMEN CONSISTS OF BENIGN FOLLICULAR CELLS, HEMOSIDERIN-LADEN MACROPHAGES, COLLOID, AND BLOOD. 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 THIS INTERPRETATION INCLUDES EVALUATION OF A CELL BLOCK. 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 Signed out by: Reyes Perez MD, Pathologist NPI- [id number] Performed by: Justin Ortega, Gin Inspector ([facility]) Gross description: 01 20ML, RED, 4FX 4 AD /LCS 04/19/2020 1924 Local FLAG LEGEND: L-Low Normal,H-High Normal,LL-Alert Low,HH-Alert High <-Panic Low,>-Panic High,A-Abnormal,AA-Critical Abnormal Performed at: [address] [place] [address] Shawn Iqbal MD, [address] [place] [phone] Hammad Perez MD, Specimen Comment: A courtesy copy of this report has been sent to [phone] Specimen Comment: [phone] Specimen Comment: Report sent to / DR ARAGON Specimen Comment: A duplicate report has been generated due to demographic updates. Performed at: [address], [place], [place] [id number] [address] [address] PATHOLOGY RPT PROCEDURE Name: MICHAEL MAJOR Room: ALEN Castaneda#: [id number] Admission: 04/19/20 Date of : 52 Discharge: Report #: [id number] Path Case #: [id number] [facility] Phone: [phone]
--- NOTE | 2020-04-22 17:06 | PATH ---
[address] [address] PATHOLOGY RPT PROCEDURE Name: MICHAEL MAJOR Room: [facility] KENDRICK Edmondson.#: [id number] Admission: 04/19/20 Date of : 52 Discharge: Report #: [id number] Path Case #: [id number] Note [facility] Accession Number: [id number] TESTS RESULT FLAG UNITS REF RANGE LAB Clinician Provided Cytology Information No. of containers..01 Other (Miscellaneous) Source: LEFT THYROID NODULE DIAGNOSIS: 02 LEFT THYROID NODULE, IMAGE-GUIDED FNA NEGATIVE FOR MALIGNANT CELLS. BETHESDA CATEGORY II. SPECIMEN CONSISTS OF BENIGN FOLLICULAR CELLS, HEMOSIDERIN-LADEN MACROPHAGES, COLLOID, AND BLOOD. 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 THIS INTERPRETATION INCLUDES EVALUATION OF A CELL BLOCK. 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 Signed out by: Reyes Perez MD, Pathologist NPI- [id number] Performed by: Justin Glass, Television Production Technician ([facility]) Gross description: 01 30ML, RED, 4 FX 4 AD /LCS 04/19/2020 1928 Local FLAG LEGEND: L-Low Normal,H-High Normal,LL-Alert Low,HH-Alert High <-Panic Low,>-Panic High,A-Abnormal,AA-Critical Abnormal Performed at: [address] [place] [address] Shawn Iqbal MD, [address] [place] [phone] Hammad Perez MD, Specimen Comment: A courtesy copy of this report has been sent to [phone] Specimen Comment: [phone] Specimen Comment: Report sent to / DR ARAGON Specimen Comment: A duplicate report has been generated due to demographic updates. Performed at: [address], [place], [place] [id number] [address] [address] PATHOLOGY RPT PROCEDURE Name: MICHAEL MAJOR Room: ALEN Castaneda#: [id number] Admission: 04/19/20 Date of : 52 Discharge: Report #: [id number] Path Case #: [id number] [facility] Phone: [phone]
== END | disposition home or self-care (01) ==
LOC: M.ULTRA 04-18 08:30
PROVIDERS: ATTEND Family Medicine
DX: E04.1 Nontoxic single thyroid nodule (principal); M16.11 Unilateral primary osteoarthritis, right hip; M25.551 Pain in right hip; Z98.890 Other specified postprocedural states; Z79.01 Long term (current) use of anticoagulants; Z79.899 Other long term (current) drug therapy

== ENCOUNTER 2020-08-20 08:25 | Emergency (ER) | payer MEDICARE, OTHER ==
[~2020-08-20] VITALS: Ht 172.7 cm; Wt 84.4 kg
[2020-08-20] MEDS ORDERED: NORCO 5-325 TA1 EAC2 PO (09:32)
[2020-08-20 09:36] VITALS: BP 156/46
== END 2020-08-20 09:37 | disposition home or self-care (01) ==
LOC: M.ERS 08:25
DX: S70.01XA Contusion of right hip, initial encounter (principal); M19.90 Unspecified osteoarthritis, unspecified site; Z88.2 Allergy status to sulfonamides; Z96.641 Presence of right artificial hip joint; W01.0XXA Fall on same level from slipping, tripping and stumbling without subsequent striking against object, initial encounter; Y93.89 Activity, other specified; Y92.89 Other specified places as the place of occurrence of the external cause; Y99.8 Other external cause status

== ENCOUNTER → 2020-11-15 | Outpatient (CLI) | payer MEDICARE, OTHER ==
[~2020-11-15] MED LIST changes: +NORCO 5-325 TA1 EAC2 PO
== END ==
LOC: M.RAD 09:07
PROVIDERS: ATTEND Family Medicine
DX: Z12.31 Encounter for screening mammogram for malignant neoplasm of breast (principal)

== ENCOUNTER → 2020-12-03 | Outpatient (CLI) | payer MEDICARE, OTHER ==
[2020-12-03 10:25] LABS: CREATININE 0.8 mg/dL (0.6-1.3)
== END ==
LOC: M.LAB 09:55 → M.MRI 11:30
PROVIDERS: ATTEND Family Medicine
DX: R51.9 Headache, unspecified (principal); R42 Dizziness and giddiness; H53.8 Other visual disturbances

== ENCOUNTER → 2021-04-08 | Outpatient (CLI) | payer MEDICARE, OTHER | LOC: M.RAD 07:35 | PROVIDERS: ATTEND Family Medicine | DX: Z78.0 Asymptomatic menopausal state (principal) ==

== ENCOUNTER → 2021-10-21 | Outpatient (CLI) | payer MEDICARE, OTHER | LOC: M.RAD 08:46 | PROVIDERS: ATTEND Family Medicine | DX: Z12.31 Encounter for screening mammogram for malignant neoplasm of breast (principal) ==